=== PATIENT | female | born 1950 | race Caucasian/White ===

== ENCOUNTER 2021-11-24 07:49 | Emergency (ER) | payer MEDICARE, OTHER ==
[~2021-11-24 07:49] MED LIST: CERTAGEN1 EACH PO; ELAVIL10 MG PO; SYNTHROID75 MCG PO; VITAMIN D400 UNI2 PO
[2021-11-24 08:25] LABS: BASOPHIL 1.1 % (0-2); EOSINOPHIL 2.1 % (0-7); HGB 14.7 g/dl (12.5-16.0); LYMPHOCYTE 20.4 % (15-48); MCH 26.1 pg (25.0-31.0); MCHC 32.7 g/dL (32.0-36.0); MCV 79.8 fL (78.0-100.0); MONOCYTE 5.9 % (0-12); MPV 9.1 fL (6.0-9.5); NEUTROPHIL 70.2 % (41-80); NRBC 0; PLT 402 K/uL (150-400); RBC 5.64 M/uL (4.20-5.40); WBC 13.1 K/uL (4.0-10.5)
[2021-11-24 09:44] LABS: BUN/CREAT RATIO (CALC) 34.3 RATIO; CREATININE 0.7 mg/dL (0.51-0.95); GLOBULIN (CALCULATION) 2.5 g/dL; POTASSIUM 4.1 mmol/L (3.5-5.1); TOTAL PROTEIN 6.5 g/dL (6.4-8.2)
[2021-11-24 10:05] LABS: BILIRUBIN NEGATIVE (NEGATIVE); BLOOD TRACE-LYSED Ery/uL (NEGATIVE); CLARITY CLEAR (CLEAR); COLOR YELLOW (YELLOW); GLUCOSE (U) NORMAL (NORMAL); LEUKOCYTES NEGATIVE Leu/uL (NEGATIVE); NITRITE NEGATIVE (NEGATIVE); PROTEIN NEGATIVE (NEGATIVE); UROBILINOGEN 0.2 mg/dL (0.2-1.0)
[2021-11-24 10:54] LABS: BACTERIA TRACE; URINARY WBC RARE
[2021-11-24 15:58] LABS: BILIRUBIN - TOTAL 0.3 mg/dL (0.2-1.0)
== END 2021-11-24 11:45 | disposition home or self-care (01) ==
LOC: FER 07:49
PROVIDERS: Emergency Medicine
DX: N13.2 Hydronephrosis with renal and ureteral calculous obstruction (principal); K21.9 Gastro-esophageal reflux disease without esophagitis; Z91.040 Latex allergy status; Z79.899 Other long term (current) drug therapy
CPT/HCPCS: 36415; 80053; 81001; 82150; 83690; 85025; J2270; J2405; J7030